=== PATIENT | male | born 1965 | race Caucasian/White ===

== ENCOUNTER 2016-07-22 21:11 | Emergency (ER) | payer OTHER ==
[~2016-07-22] VITALS: Ht 185.4 cm; Wt 95.0 kg
[~2016-07-22 21:11] MED LIST: TRAM50 PO; Z.0.NO CURRENT MEDS
[2016-07-22 21:30] VITALS: BP 131/101; PULSE 70; RESP 18; TEMP 97.9; O2SAT 99
[2016-07-22 21:42] VITALS: BP 131/101; PULSE 70; RESP 18; TEMP 97.9; O2SAT 99
[2016-07-22] MEDS ORDERED: PROPARACAINE HCL 0.5% OPHT SOLN 15 ML BTL ONE (22:15)
--- NOTE | 2016-07-22 22:15 | PD ---
HPI Chief Complaint: Eye Problems/Injury Time Seen by Provider: 21:39 Travel History International Travel<30 days: No Contact w/Intl Traveler<30days: No Traveled to known affect area: No History of Present Illness HPI 51yo M with no PMH presents to the ED with c/o right eye pain at 4pm today. Pt was cutting hedges and one of the branch poke his right eye today. Pain started afterwards and he had watery discharge. Pt irrigated it with contact lens solution but it hurt. Denies any foreign body sensation. Pt does not currently wear contact lens but wears glasses. Denies any fever, chest pain, n/ v, abdominal pain, focal weakness or numbness. PFSH Past Medical History Diminished Hearing: No Immunizations Current: Yes Tetanus Vaccination: > 5 Years Influenza Vaccination: No Social History Alcohol Use: No Tobacco Use: No Substance Use: No Allergies-Medications (Allergen,Severity, Reaction): Coded Allergies: Penicillin (Verified Allergy, Intermediate, RASH,HIVES, 07/22/16) Reported Meds & Prescriptions Reported Meds & Active Scripts Active No Active Prescriptions or Reported Medications Review of Systems Except as stated in HPI: all other systems reviewed are Neg Physical Exam Narrative GENERAL: 51yo M in mild distress. SKIN: Focused skin assessment warm/dry. HEAD: Atraumatic. Normocephalic. EYES: Right eye: Pupils 3 mm and reactive. Injected conjunctiva. No foreign body visualized inside upper or lower eyelids. +Florescein uptake in middle of cornea over pupil. CARDIOVASCULAR: Regular rate and rhythm. No murmur appreciated. RESPIRATORY: No accessory muscle use. Clear to auscultation. Breath sounds equal bilaterally. GASTROINTESTINAL: Abdomen soft, non-tender, nondistended. MUSCULOSKELETAL: No obvious deformities. No clubbing. No cyanosis. No edema. NEUROLOGICAL: Awake and alert. No obvious cranial nerve deficits. Motor grossly within normal limits. Normal speech. PSYCHIATRIC: Appropriate mood and affect; insight and judgment normal. Data Data Last Documented VS Vital Signs Date Time Temp Pulse Resp B/P Pulse Ox O2 Delivery O2 Flow Rate FiO2 07/22/16 21:45 70 18 07/22/16 21:42 97.9 131/101 99 MDM Medical Decision Making Medical Screen Exam Complete: Yes Emergency Medical Condition: Yes Differential Diagnosis Corneal abrasion vs. laceration vs. retained foreign body Narrative Course 51yo M with right eye pain. Flourescein exam showed corneal abrasion in middle of the cornea. No foreign body seen. Pt felt better after proparacaine drops. Eye pain has resolved. Instructed pt to follow up with ophthalmology as outpatient. Return precautions given. Diagnosis Primary Impression: Corneal abrasion Qualified Code: S05.01XA - Corneal abrasion, right, initial encounter Departure Forms: Tests/Procedures Additional Instructions: Please follow up with ophthalmology clinic at next available appointment. Return to the ED if symptoms worsen. Med/Other Pt SpecificInfo: Prescription(s) given Scripts Ibuprofen 600 Mg [id number] Mg PO Q8HR PRN (PAIN) #20 TAB Ref 0 Prov:Danelle Lentz DO 07/22/16 Erythromycin Opth Oint 5 Mg/Gm Oint1 Applic RIGHT EYE BID 10 Days Ref 0 Prov:Danelle eLntz DO 07/22/16 Danelle Lentz DO Jul 22, 2016 22:15
[2016-07-22] MEDS ORDERED: ERYTOIN10 RIGHT EYE (22:23)
[2016-07-22] MEDS ORDERED: IBUP-232 PO (22:23)
[2016-07-22 22:43] VITALS: BP 128/82; PULSE 87; RESP 18; O2SAT 96
== END 2016-07-22 22:56 | disposition home or self-care (01) ==
LOC: PHED 21:11
DX: S05.01XA Injury of conjunctiva and corneal abrasion without foreign body, right eye, initial encounter (principal); T15.01XA Foreign body in cornea, right eye, initial encounter; W22.8XXA Striking against or struck by other objects, initial encounter; Y93.H2 Activity, gardening and landscaping; Y92.9 Unspecified place or not applicable; Y99.9 Unspecified external cause status
CPT/HCPCS: 99283

== ENCOUNTER 2016-10-24 18:04 | Emergency (ER) | payer OTHER ==
[~2016-10-24] VITALS: Ht 185.4 cm; Wt 94.2 kg
[~2016-10-24 18:04] MED LIST changes: +ERYTOIN10 RIGHT EYE; +IBUP-232 PO; -TRAM50 PO; -Z.0.NO CURRENT MEDS
[2016-10-24 18:16] VITALS: BP 155/84; PULSE 75; RESP 16; TEMP 98; O2SAT 99
[2016-10-24] MEDS ORDERED: MULTTAB67 PO (18:33)
[2016-10-24] MEDS ORDERED: OMEGCAP PO (18:33)
[2016-10-24] MEDS ORDERED: VITA250C3 CHEW (18:33)
[2016-10-24 18:38] LABS: BLOOD, URINE LARGE (NEG); GLUCOSE,URINE NEG (NEG); KETONE, URINE TRACE mg/dL (NEG); NITRITE,URINE NEG (NEG)
[2016-10-24 18:41] LABS: URINE COLOR RED (YELLW/STRAW)
[2016-10-24 18:44] LABS: COMMENT (UR) CULTURE INDICATED; CULTURE IF INDICATED CULTURE INDICATED; RBC, URINE INNUM /hpf (0-3); SQUAMOUS EPITHELIAL CELL URINE 0-5 /hpf (0-5)
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
[2016-10-24] MEDS ORDERED: SODIUM CHLOR 0.9% 1000 ML INJ 1,000 ML IV ONE ×2 (19:00→21:00)
[2016-10-24 19:15] LABS: AUTOMATED NEUTROPHIL # 3.8 TH/MM3 (1.8-7.7); BASOPHIL % 0.7 % (0.0-2.0); EOSINOPHIL # 0.1 TH/MM3 (0-0.4); EOSINOPHIL % 2.4 % (0.0-4.0); HEMATOCRIT 43.8 % (39.0-51.0); HEMO FLAGS DIFF FINAL; LYMPH % 24.2 % (9.0-44.0); LYMPHOCYTE # 1.4 TH/MM3 (1.0-4.8); MEAN CELL VOLUME 89.1 FL (80.0-100.0); MEAN CORPUSCULAR HEMOGLOBIN 29.7 PG (27.0-34.0); MEAN CORPUSCULAR HGB CONC 33.3 % (32.0-36.0); MONO % 7.2 % (0.0-8.0); NEUT % 65.5 % (16.0-70.0); PLATELET COUNT 234 TH/MM3 (150-450); RED BLOOD COUNT 4.91 MIL/MM3 (4.50-5.90); RED CELL DISTRIBUTION WIDTH 12.2 % (11.6-17.2); WHITE BLOOD COUNT 5.7 TH/MM3 (4.0-11.0)
--- NOTE | 2016-10-24 19:19 | PD ---
Physical Exam Date Seen by Provider: Oct 24, 2016 Time Seen by Provider: 19:17 Narrative accepted in transfer of care from Dr Pierce GENERAL: Well-developed well-nourished male in no acute distress no respiratory distress SKIN: Warm and dry. MUSCULOSKELETAL: No cyanosis, or edema. BACK: Nontender without obvious deformity. No ecchymosis no abrasion. No CVA tenderness. Data Data Last Documented VS Vital Signs Date Time Temp Pulse Resp B/P Pulse Ox O2 Delivery O2 Flow Rate FiO2 10/24/16 21:00 55 18 125/85 97 Room Air 10/24/16 18:16 98.0 Orders Urinalysis - C+S If Indicated (10/24/16 18:22) Urine Culture (10/24/16 18:25) Iv Access Insert/Monitor (10/24/16 18:46) Complete Blood Count With Diff (10/24/16 18:46) Comprehensive Metabolic Panel (10/24/16 18:46) Creatine Kinase (Cpk) (10/24/16 18:46) Ct Abd/Pel W/O Iv Contrast (10/24/16 ) Sodium Chlor 0.9% 1000 Ml Inj (Ns 1000 M (10/24/16 19:00) Sodium Chlor 0.9% 1000 Ml Inj (Ns 1000 M (10/24/16 21:00) Labs Laboratory Tests Test 10/24/16 10/24/16 18:25 19:05 Urine Color RED Urine Turbidity CLOUDY Urine pH 6.0 Urine Specific [place] 1.030 Urine Protein 300 OR GREATER mg/dL Urine Glucose (UA) NEG mg/dL Urine Ketones TRACE mg/dL Urine Occult Blood LARGE Urine Nitrite NEG Urine Bilirubin NEG Urine Leukocyte Esterase NEG Urine RBC INNUM /hpf Urine WBC 20-24 /hpf Urine Squamous Epithelial 0-5 /hpf Cells Microscopic Urinalysis Comment CULTURE INDICATED White Blood Count 5.7 TH/MM3 Red Blood Count 4.91 MIL/MM3 Hemoglobin 14.6 GM/DL Hematocrit 43.8 % Mean Corpuscular Volume 89.1 FL Mean Corpuscular Hemoglobin 29.7 PG Mean Corpuscular Hemoglobin 33.3 % Concent Red Cell Distribution Width 12.2 % Platelet Count 234 TH/MM3 Mean Platelet Volume 7.4 FL Neutrophils (%) (Auto) 65.5 % Lymphocytes (%) (Auto) 24.2 % Monocytes (%) (Auto) 7.2 % Eosinophils (%) (Auto) 2.4 % Basophils (%) (Auto) 0.7 % Neutrophils # (Auto) 3.8 TH/MM3 Lymphocytes # (Auto) 1.4 TH/MM3 Monocytes # (Auto) 0.4 TH/MM3 Eosinophils # (Auto) 0.1 TH/MM3 Basophils # (Auto) 0.0 TH/MM3 CBC Comment DIFF FINAL Differential Comment Sodium Level 143 MEQ/L Potassium Level 3.9 MEQ/L Chloride Level 111 MEQ/L Carbon Dioxide Level 25.2 MEQ/L Anion Gap 7 MEQ/L Blood Urea Nitrogen 21 MG/DL Creatinine 1.10 MG/DL Estimat Glomerular Filtration 70 ML/MIN Rate Random Glucose 91 MG/DL Calcium Level 9.0 MG/DL Total Bilirubin 0.5 MG/DL Aspartate Amino Transf 34 U/L (AST/SGOT) Alanine Aminotransferase 53 U/L (ALT/SGPT) Alkaline Phosphatase 98 U/L Total Creatine Kinase 181 U/L Total Protein 7.5 GM/DL Albumin 3.8 GM/DL [facility] Medical Record Reviewed: Yes Supervised Visit with LEVON: No Interpretation(s) Last Impressions Abdomen/Pelvis CT 10/24/16 0000 Signed Impressions: Service Date/Time: Monday, October 24, 2016 18:44 - CONCLUSION: 1. No evidence of renal stones or hydronephrosis. 2. Small left inguinal hernia containing fat.. Shawn Mendes MD CBC & BMP Diagram 10/24/16 19:05 Vital Signs Date Time Temp Pulse Resp B/P Pulse Ox O2 Delivery O2 Flow Rate FiO2 10/24/16 19:45 62 18 126/77 97 Room Air 10/24/16 19:05 18 10/24/16 18:16 98.0 75 16 155/84 99 Differential Diagnosis accepted in transfer of care from Dr Pierce; please refer to her dictation Narrative Course accepted in transfer of care from Dr Pierce; follow up of pending diagnostics and disposition Patient resting comfortably awaiting CT CT resulted no acute abnormality Patient's case discussed with on-call urologist Dr. Sharpe will see in the office for outpatient cystoscopy Physician Communication Physician Communication @ 8:[address] Sharpe --will see in office for clinic cystoscopy Diagnosis Primary Impression: Hematuria, gross Referrals: El Chavez MD PhD call for appointment Ji Sharpe MD call for appointment Patient Instructions: General Instructions Additional Instruction: Increase fluid hydration Follow-up with urologist, Dr Sharpe, and primary care provider call office in a.m. to schedule follow-up Monitor temperature every 4 hours with thermometer and take as needed acetaminophen/Tylenol every 4 hours for fever 100.4F or greater Avoid nonsteroidal anti-inflammatory medication such as ibuprofen/Advil/Motrin or naproxen/Naprosyn/Aleve and aspirin until PCP/urology follow-up Return to the emergency department if recurrent gross blood in the urine No physical exertion or strenuous activity until follow-up with primary care provider/urology Return to the emergency department for pain increase blood in urine or fever or any concerns Disposition: 01 DISCHARGE HOME Condition: Stable Elysia Bridges MD Oct 24, 2016 19:19
[2016-10-24 19:24] LABS: CHLORIDE 111 MEQ/L (98-107); POTASSIUM 3.9 MEQ/L (3.5-5.1); SODIUM (NA) 143 MEQ/L (136-145)
[2016-10-24 19:28] LABS: ANION GAP 7 MEQ/L (5-15); BICARBONATE 25.2 MEQ/L (21.0-32.0); BLOOD UREA NITROGEN 21 MG/DL (7-18)
[2016-10-24 19:31] LABS: ALT (GPT) 53 U/L (12-78); AST (GOT) 34 U/L (15-37); GLOMERULAR FILTRATION RATE 70 ML/MIN (>89)
[2016-10-24 19:33] LABS: TOTAL BILIRUBIN ADULT 0.5 MG/DL (0.2-1.0)
[2016-10-24 19:34] LABS: ALKALINE PHOSPHATASE 98 U/L (45-117); CREATINE KINASE 181 U/L (39-308)
[2016-10-24 19:45] VITALS: BP 126/77; PULSE 62; RESP 18; O2SAT 97
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
[2016-10-24] MEDS ORDERED: CIPR-9 PO (20:55)
[2016-10-24 21:00] VITALS: BP 125/85; PULSE 55; RESP 18; O2SAT 97
== END 2016-10-24 21:29 | disposition home or self-care (01) ==
LOC: PHED 18:04
DX: Z88.0 Allergy status to penicillin (principal); R31.0 Gross hematuria
CPT/HCPCS: 74176; 80053; 81001; 82550; 85025; 87086; 96360; 99285; J7030